=== PATIENT | male | born 1985 | race Caucasian/White ===

== ENCOUNTER 2019-04-26 03:23 | Emergency (ER) | payer BC ==
[~2019-04-26] VITALS: Ht 180.3 cm; Wt 124.0 kg
--- NOTE | 2019-04-26 03:41 | PHYS DOC ---
Past Medical History Past Medical History: Other Additional Past Medical Histor: "GALL BLADDER ATTACKS" SEASONAL ALLERGIES Past Surgical History: No Surgical History Alcohol Use: Rarely Adult General Chief Complaint Chief Complaint: NAUSEA/VOMITING/DIARRHA HPI HPI 33-year-old male in no significant past medical history presents to the emergency Department complaints of diarrhea, nausea, vomiting, sternal, epigastric pain started around 10:30 this evening. Patient has had multiple episodes of vomiting as well as diarrhea. He has a history of a gallbladder attack approximate 5 years ago. Patient describes generalized abdominal discomfort as crampy sensation. Nothing makes his pain worse, nothing makes his pain better. Patient denies any headache, visual change, chest pain, or fever Review of Systems Review of Systems Constitutional: Denies fever or chills [] Respiratory: Denies cough or shortness of breath [] Cardiovascular: No additional information not addressed in HPI [] GI: + abdominal pain, nausea, vomiting, diarrhea [] : Denies dysuria or hematuria [] Musculoskeletal: Denies back pain or joint pain [] Integument: Denies rash or skin lesions [] Neurologic: Denies headache, focal weakness or sensory changes [] All other systems were reviewed and found to be within normal limits, except as documented in this note. Current Medications Current Medications Current Medications Medications (Trade) Dose Ordered Sig/Spenser Start Time Stop Time Status Last Admin Dose Admin Dicyclomine HCl (Bentyl) 10 mg 1X ONCE 04/26/19 04:30 04/26/19 04:31 UNV Morphine Sulfate (Morphine Sulfate) 4 mg 1X ONCE 04/26/19 03:45 04/26/19 03:46 DC 04/26/19 03:46 4 MG Ondansetron HCl (Zofran) 4 mg 1X ONCE 04/26/19 03:45 04/26/19 03:46 DC 04/26/19 03:46 4 MG Sodium Chloride 1,000 ml @ 1,000 mls/hr Q1H 04/26/19 03:45 04/26/19 04:44 04/26/19 03:45 1,000 MLS/HR Allergies Allergies Allergies Coded Allergies Type Severity Reaction Last Updated Verified triamcinolone Allergy Unknown 04/26/19 Yes Physical Exam Physical Exam Constitutional: Well developed, well nourished, no acute distress, non-toxic appearance. [] HENT: Normocephalic, atraumatic, bilateral external ears normal, oropharynx moist, no oral exudates, nose normal. [] Eyes: PERRLA, EOMI, conjunctiva normal, no discharge. [] Cardiovascular:Heart rate regular rhythm, no murmur [] Lungs & Thorax: Bilateral breath sounds clear to auscultation [] Abdomen: Bowel sounds normal, soft, generalized TTP, no lima sign on exam, no masses, no pulsatile masses. [] Skin: Warm, dry, no erythema, no rash. [] Back: No tenderness, no CVA tenderness. [] Extremities: No tenderness, no edema. [] Neurologic: Alert and oriented X 3, no focal deficits noted. [] Psychologic: Affect normal, judgement normal, mood normal. [] Current Patient Data Vital Signs Vital Signs Date Time Temp Pulse Resp B/P (MAP) Pulse Ox O2 Delivery O2 Flow Rate FiO2 04/26/19 03:46 20 97 Room Air 04/26/19 03:27 98.0 107 133/97 (109) 98.0 Lab Values Laboratory Tests Test 04/26/19 03:40 04/26/19 04:00 White Blood Count 15.4 x10^3/uL (4.0-11.0) H Red Blood Count 5.32 x10^6/uL (4.30-5.70) Hemoglobin 16.5 g/dL (13.0-17.5) Hematocrit 48.3 % (39.0-53.0) Mean Corpuscular Volume 91 fL (79-100) Mean Corpuscular Hemoglobin 31 pg (25-35) Mean Corpuscular Hemoglobin Concent 34 g/dL (31-37) Red Cell Distribution Width 13.1 % (11.5-14.5) Platelet Count 507 x10^3/uL (140-400) H Neutrophils (%) (Auto) 88 % (31-73) H Lymphocytes (%) (Auto) 5 % (24-48) L Monocytes (%) (Auto) 6 % (0-9) Eosinophils (%) (Auto) 1 % (0-3) Basophils (%) (Auto) 0 % (0-3) Neutrophils # (Auto) 13.5 x10^3/uL (1.8-7.7) H Lymphocytes # (Auto) 0.8 x10^3/uL (1.0-4.8) L Monocytes # (Auto) 0.9 x10^3/uL (0.0-1.1) Eosinophils # (Auto) 0.1 x10^3/uL (0.0-0.7) Basophils # (Auto) 0.0 x10^3/uL (0.0-0.2) Platelet Estimate Pending Sodium Level 139 mmol/L (136-145) Potassium Level 3.7 mmol/L (3.5-5.1) Chloride Level 102 mmol/L (98-107) Carbon Dioxide Level 23 mmol/L (21-32) Anion Gap 14 (6-14) Blood Urea Nitrogen 18 mg/dL (8-26) Creatinine 1.1 mg/dL (0.7-1.3) Estimated GFR (Cockcroft-Gault) 77.1 BUN/Creatinine Ratio 16 (6-20) Glucose Level 129 mg/dL (70-99) H Calcium Level 8.8 mg/dL (8.5-10.1) Total Bilirubin 1.0 mg/dL (0.2-1.0) Aspartate Amino Transferase (AST) 22 U/L (15-37) Alanine Aminotransferase (ALT) 44 U/L (16-63) Alkaline Phosphatase 71 U/L (46-116) Total Protein 7.8 g/dL (6.4-8.2) Albumin 3.6 g/dL (3.4-5.0) Albumin/Globulin Ratio 0.9 (1.0-1.7) L Lipase 166 U/L (73-393) Urine Collection Type Unknown Urine Color Amy Urine Clarity Clear Urine pH 5.0 Urine Specific Pindall >=1.030 Urine Protein Negative mg/dL (NEG-TRACE) Urine Glucose (UA) Negative mg/dL (NEG) Urine Ketones (Stick) Trace mg/dL (NEG) Urine Blood Negative (NEG) Urine Nitrite Negative (NEG) Urine Bilirubin Negative (NEG) Urine Urobilinogen Dipstick 0.2 mg/dL (0.2 mg/dL) Urine Leukocyte Esterase Negative (NEG) Urine RBC 0 /HPF (0-2) Urine WBC Occ /HPF (0-4) Urine Squamous Epithelial Cells Few /LPF Urine Bacteria 0 /HPF (0-FEW) Urine Mucus Marked /LPF Laboratory Tests 04/26/19 03:40 Laboratory Tests 04/26/19 03:40 EKG EKG [] Radiology/Procedures Radiology/Procedures [] Course & Med Decision Making Course & Med Decision Making Pertinent Labs and Imaging studies reviewed. (See chart for details) []33-year-old male in no significant past medical history presents to the emergency Department complaints of diarrhea, nausea, vomiting, sternal, epigastric pain started around 10:30 this evening. Patient has had multiple episodes of vomiting as well as diarrhea. He has a history of a gallbladder attack approximate 5 years ago. Patient describes generalized abdominal discomfort as crampy sensation. Nothing makes his pain worse, nothing makes his pain better. Patient denies any headache, visual change, chest pain, or fever Labs reviewed WBC 15k, AST/ALT/Lipase within normal limits K 3.7 Patient improved after bentyl/zofran/IVF NO plans for imaging at this time given generalized pain, nonspecific Recommend continued IVF and plan for dc home Discussed return precautions Rx for zofran and bentyl provided upon discharge Marlon Disclaimer Marlon Disclaimer This electronic medical record was generated, in whole or in part, using a voice recognition dictation system. Departure Departure Impression: Primary Impression: Viral gastroenteritis Disposition: HOME, SELF-CARE Condition: IMPROVED Referrals: NO PCP (PCP) Patient Instructions: Viral Gastroenteritis, [id number] Additional Instructions: Recommend follow up with PCP 3 - 5 days Return to the ER with worsening symptoms, intractable pain, fever, altered mental status Tylenol/Motrin as needed for pain Rx provided for zofran and bentyl upon discharge Labs reviewed with mild elevation of WBC however expected with vomiting Scripts Ondansetron Hcl (ZOFRAN) 4 Mg Tablet 1 TAB PO PRN Q6-8HRS for nausea, #12 TAB Prov: POLO HOLLOWAY MD 04/26/19 Dicyclomine Hcl (DICYCLOMINE HCL) 10 Mg Capsule 1 CAP PO TID for 7 Days, #21 CAP 11 Refills Prov: POLO HOLLOWAY MD 04/26/19 POLO HOLLOWAY MD Apr 26, 2019 03:41
[2019-04-26] MEDS: IV NORMAL SALINE 1000ML BAG 1,000 ML IV SCH (03:45)
[2019-04-26] MEDS: MORPHINE SULFATE 4 MG/ML VIAL. IV ONE (03:46)
[2019-04-26] MEDS: ONDANSETRON PF 4 MG/2 ML VIAL. IV ONE (03:46)
[2019-04-26 03:52] LABS: BASO % 0 % (0-3); EOS # 0.1 x10^3/uL (0.0-0.7); EOS % 1 % (0-3); HEMATOCRIT 48.3 % (39.0-53.0); HEMOGLOBIN 16.5 g/dL (13.0-17.5); LYMPH # 0.8 x10^3/uL (1.0-4.8); LYMPH % 5 % (24-48); MEAN CORPUSCULAR HEMOGLOBIN 31 pg (25-35); MEAN CORPUSCULAR HGB CONC 34 g/dL (31-37); MEAN CORPUSCULAR VOLUME 91 fL (79-100); MONO # 0.9 x10^3/uL (0.0-1.1); MONO % 6 % (0-9); NEUT # 13.5 x10^3/uL (1.8-7.7); NEUT % 88 % (31-73); PLATELET COUNT 507 x10^3/uL (140-400); RED BLOOD COUNT 5.32 x10^6/uL (4.30-5.70); RED CELL DISTRIBUTION WIDTH 13.1 % (11.5-14.5); WHITE BLOOD COUNT 15.4 x10^3/uL (4.0-11.0)
[2019-04-26 04:00] VITALS: BP 138/84
[2019-04-26 04:04] LABS: CALCIUM 8.8 mg/dL (8.5-10.1); CREATININE 1.1 mg/dL (0.7-1.3); GFR 77.1; POTASSIUM 3.7 mmol/L (3.5-5.1)
[2019-04-26 04:10] LABS: ALBUMIN 3.6 g/dL (3.4-5.0); ALBUMIN/GLOBULIN RATIO 0.9 (1.0-1.7); TOTAL PROTEIN 7.8 g/dL (6.4-8.2)
[2019-04-26 04:12] LABS: BILIRUBIN,URINE NEGATIVE (NEG); CLARITY,URINE CLEAR; COLOR,URINE AMBER; NITRITE,URINE NEGATIVE (NEG); PROTEIN,URINE NEGATIVE (NEG-TRACE); UROBILINOGEN,URINE 0.2 mg/dL (0.2 mg/dL)
[2019-04-26 04:26] LABS: BACTERIA,URINE 0 /HPF (0-FEW); RBC,URINE 0 /HPF (0-2); WBC,URINE OCC /HPF (0-4)
[2019-04-26 04:27] LABS: SQUAMOUS EPITHELIAL CELL,UR FEW /LPF
[2019-04-26] MEDS ORDERED: DICYCLOMINE 20 MG/2 ML AMPUL. IM ONE (04:30)
[2019-04-26] MEDS ORDERED: DICY10CA3 PO (04:32)
[2019-04-26] MEDS ORDERED: ONDA4TAB7 PO (04:32)
[2019-04-26] MEDS: DICYCLOMINE HCL 10 MG CAPSULE PO ONE (04:50)
[2019-04-26 07:40] LABS: % BANDS 5 % (0-9); % EOS 1 % (0-5); % LYMPHS 8 % (24-48); % MONOS 7 % (0-10); % SEGS 79 % (35-66); PLT ESTIMATE INCREASED (ADEQUATE)
== END 2019-04-26 05:00 | disposition home or self-care (01) ==
LOC: ER 03:23
DX: A08.4 Viral intestinal infection, unspecified (principal); R10.84 Generalized abdominal pain; R11.2 Nausea with vomiting, unspecified; R19.7 Diarrhea, unspecified; J30.2 Other seasonal allergic rhinitis; Z88.1 Allergy status to other antibiotic agents
CPT/HCPCS: 36415; 80053; 81001; 83690; 85007; 85025; 96361; 96374; 96375; 99284; J2270; J2405; J7030